=== PATIENT | female | born 1985 | race Caucasian/White ===

== ENCOUNTER → 2019-08-05 15:25 | Outpatient (CLI) | payer OTHER, SELFPAY ==
[2019-08-05 16:55] LABS: Alanine Aminotransferase 15 IU/L (<35); Albumin 4.7 g/dL (3.5-5.0); Albumin Globulin Ratio 1.6 (1.0-2.8); Alkaline Phosphatase 52 U/L (38-126); Aspartate Aminotransferase 18 IU/L (14-36); BUN Creatinine Ratio 12.9 (6-22); Bilirubin Total 0.5 mg/dL (0.2-1.3); Blood Urea Nitrogen 9 mg/dL (7-17); Calcium 9.8 mg/dL (8.4-10.2); Carbon Dioxide 30 mmol/L (22-32); Chloride 99 mmol/L (98-107); Estimated Glomerular Filt Rate > 60.0 mL/min (>60); Globulin 2.9 g/dL (1.7-4.1); Glucose 96 mg/dL (70-100); HEMOLYSIS < 15 (0-50); Lipase 49 U/L (23-300); Potassium 4.5 mmol/L (3.4-5.1); Sodium 138 mmol/L (137-145); Total Protein 7.6 g/dL (6.3-8.2)
[2019-08-05 17:25] LABS: TSH w/ Reflex to FT4 0.69 uIU/mL (0.47-4.68)
== END ==
PROVIDERS: Family Provider Family Medicine; PCP Family Medicine; Referring Provider Family Medicine; Visit Provider Family Medicine
DX: K52.9 Noninfective gastroenteritis and colitis, unspecified (principal)
CPT/HCPCS: 36415; 80053; 83516; 83690; 84443

== ENCOUNTER → 2019-08-13 12:08 | Outpatient (CLI) | payer OTHER, SELFPAY ==
[2019-08-19 22:20] LABS: Calprotectin, Stool < 15.6 mcg/g
== END ==
PROVIDERS: Family Provider Family Medicine; PCP Family Medicine; Referring Provider Family Medicine; Visit Provider Family Medicine
DX: K52.9 Noninfective gastroenteritis and colitis, unspecified (principal)
CPT/HCPCS: 83993

== ENCOUNTER → 2019-09-10 09:06 | Outpatient (CLI) | payer OTHER, SELFPAY | PROVIDERS: Family Provider Family Medicine; PCP Family Medicine; Visit Provider Family Medicine | DX: R19.7 Diarrhea, unspecified (principal) | CPT/HCPCS: 87045; 87177; 87899 ==

== ENCOUNTER → 2020-11-27 11:23 | Outpatient (CLI) | payer OTHER, SELFPAY ==
[2020-11-27 11:59] LABS: Hematocrit 41.6 % (36-46); Hemoglobin 14.3 g/dL (12.0-16.0)
== END ==
PROVIDERS: Family Provider Family Medicine; PCP Family Medicine; Referring Provider Family Medicine; Visit Provider Family Medicine
DX: Z86.2 Personal history of diseases of the blood and blood-forming organs and certain disorders involving the immune mechanism (principal)
CPT/HCPCS: 36415; 85014; 85018

== ENCOUNTER → 2021-03-15 14:38 | Outpatient (CLI) | payer OTHER, MEDICAID, SELFPAY ==
[2021-03-15 16:05] LABS: TSH w/ Reflex to FT4 0.71 uIU/mL (0.47-4.68)
[2021-03-18 16:17] LABS: Estrogen 192 pg/mL (.)
[2021-03-18 19:44] LABS: Follicle Stimulating Hormone 4.43 mIU/mL; Luteinizing Hormone 6.06 mIU/mL
[2021-03-26 11:16] LABS: % Free Progesterone 2.9 % (.); Free Progesterone 2.8 ng/dL (.); Progesterone, Serum 98 ng/dL (.)
== END ==
PROVIDERS: Family Provider Family Medicine; PCP Family Medicine; Referring Provider Family Medicine; Visit Provider Family Medicine
DX: N64.4 Mastodynia (principal)
CPT/HCPCS: 36415; 82672; 83001; 83002; 84144; 84443; 84999

== ENCOUNTER → 2021-11-10 11:41 | Outpatient (CLI) | payer OTHER, MEDICAID, SELFPAY ==
[2021-11-10 12:43] LABS: Add Manual Diff / Slide Review NO; Basophils Absolute Auto 0 /uL (0-100); Basophils Percent Auto 0.2 % (0-2); Eosinophils Absolute Auto 200 /uL (0-450); Eosinophils Percent Auto 1.7 % (2-4); Hematocrit 37.3 % (36-46); Hemoglobin 12.6 g/dL (12.0-16.0); Lymphocytes Absolute Auto 1500 /uL (1100-4500); Mean Corpuscular HGB Conc 33.8 % (30-36); Mean Corpuscular Volume 88.8 fL (80-100); Monocytes Absolute Auto 700 /uL (0-900); Monocytes Percent Auto 7.3 % (3-14); Neutrophils Absolute Auto 7400 /uL (1500-7000); Neutrophils Percent Auto 75.8 % (50-75); Platelet Count 309 X10^3/uL (150-400); Red Cell Distribution Width 13.5 % (11.6-14.8); White Blood Cell Count 9.8 X10^3/uL (4.5-11.0)
[2021-11-10 16:51] LABS: Appearance Urine UA CLEAR; Bilirubin Urine UA NEGATIVE (NEGATIVE); Color Urine UA YELLOW; Glucose Urine UA NEGATIVE (Negative); Ketones Urine UA TRACE (NEGATIVE); Leukocyte Esterase Urine UA TRACE (NEGATIVE); Nitrite Urine UA NEGATIVE (Negative); Occult Blood Urine UA TRACE-INTACT (Negative); Protein Urine UA NEGATIVE (Negative); Urobilinogen Urine UA 0.2 E.U./dL (0.2)
[2021-11-10 17:17] LABS: Bacteria Urine Few (2-10); Culture Indicated Urine Specimen Cultured; RBC Urine 5-10/HPF (0-5/HPF); Squamous Epithelial Cell Urine 5-10 /HPF (0-5/HPF); Transitional Epi Cells Urine 1-5/HPF (0-5/HPF); WBC Urine 5-10/HPF (0-5/HPF)
[2021-11-11 06:43] LABS: RPR Screen Non Reactive (Non Reactive)
[2021-11-11 08:22] LABS: Varicella IgG Antibody 1001 index (Immune >165)
[2021-11-11 16:04] LABS: HIV 1 & 2 Ab/Ag 4th Gen Combo NEGATIVE (NEGATIVE); Hep C Virus Ab w/Reflex Quant NEGATIVE s/c (NEGATIVE); Hepatitis B Surface Antigen NEGATIVE s/c (NEGATIVE); Rubella Antibody IgG 63.4 IU/mL (>15)
== END ==
PROVIDERS: Family Provider Family Medicine; PCP Family Medicine; Referring Provider Family Medicine; Visit Provider Family Medicine
DX: Z34.81 Encounter for supervision of other normal pregnancy, first trimester (principal)
CPT/HCPCS: 36415; 80055; 81003; 81015; 86787; 86803; 86850; 86900; 86901; 87086; 87389

== ENCOUNTER → 2022-01-13 12:15 | Outpatient (CLI) | payer OTHER, MEDICAID, SELFPAY ==
--- NOTE | 2022-01-13 12:17 | DI.US.S_ITS ---
PROCEDURE: US OB >= 14 WEEKS FETUS INDICATIONS: Anatomy Screening OUTSIDE/PRIOR DATING DATA: Last menstrual period (LMP): Unknown. LMP-based estimated date of delivery (SRIDEVI): Not applicable. First dating scan (date and location): No information given. The calculations are made using the clinically generated SRIDEVI of May 26, 2022. TECHNIQUE: Real-time scanning was performed of the fetus, with image documentation and biometric measurements. Endovaginal scanning: Not performed COMPARISON: None. FINDINGS: General: A single living intrauterine gestation is present. Placenta: Placental position is anterior , without previa. Amniotic fluid index: 14.4 cm, normal range is 5-24 cm. Single deepest vertical pocket is 4.6 cm. heart rate: 143 beats per minute. Maternal cervical canal: 4.0 cm long. Normal lower limit is 2.5 cm. biometrics: Biparietal diameter: 5.04 cm, 21 weeks and 2 days Head circumference: 19.17 cm, 21 weeks and 3 days Abdominal circumference: 16.73 cm, 21 weeks and 5 days Femur length: 3.64 cm, 21 weeks and 4 days Clinically estimated gestational age: 21 weeks and 0 days Composite gestational age from present scan: 21 weeks and 4 days Estimated weight and percentile: 438 g which correlates with the 78th percentile for gestational age. Anatomic survey: Neuro: Ventricles are non-dilated at less than 10 mm. Cisterna magna is normal at 3-11 mm. Cerebellum is normal in size and morphology. Nuchal skin fold: Normal at less than 6 mm between 14-21 weeks gestational age. Face: Nose and lips, facial profile were not visualized on this examination secondary to positioning throughout the study. Spine: No evidence for spina bifida. Heart: 4-chambered heart is present, with normal ventricular outflow tracts. Diaphragm: Diaphragm is intact. Stomach: Left-sided stomach is present. Kidneys: No hydronephrosis. Normal is less than 5 mm in 2nd trimester, less than 7 mm in 3rd trimester. Cord: 3-vessel cord has orthotopic insertion. Bladder: Normal in size. Extremities: All 4 extremities identified. IMPRESSION: Single living intrauterine gestation with estimated sonographic gestational age of approximately 21 weeks and 4 days versus 21 weeks and 0 days by clinical dating. Estimated weight of approximately 438 g which correlates with the 78th percentile for gestational age. The facial profile, face and lips were not well visualized secondary to positioning. Otherwise, remainder of the anatomic structures appear unremarkable. Follow-up imaging recommended. We strive to produce accurate, complete, and clear reports of imaging services. To assist us in improving patient care, this report was composed using standard report templates and voice recognition software. Therefore, it may contain abnormal punctuation, insertions and/or omissions. Occasional wrong-word or sound-alike substitutions may occur. Though we review the report and make efforts to correct it, we do recommend that the report be read carefully in proper context to recognize any text inaccuracies. Dictated by: Yung Gomez M.D. on 01/14/2022 at 16:40 Approved by: Yung Gomez M.D. on 01/14/2022 at 16:45
== END ==
PROVIDERS: Family Provider Family Medicine; PCP Family Medicine; Referring Provider Family Medicine; Visit Provider Family Medicine
DX: Z34.92 Encounter for supervision of normal pregnancy, unspecified, second trimester (principal); Z3A.21 21 weeks gestation of pregnancy
CPT/HCPCS: 76811

== ENCOUNTER → 2022-01-28 17:08 | Outpatient (CLI) | payer OTHER, MEDICAID, SELFPAY ==
--- NOTE | 2022-01-28 17:09 | DI.US.S_ITS ---
PROCEDURE: US OB FOLLOW UP INDICATIONS: unable to see structures on previous US OUTSIDE/PRIOR DATING DATA: Last menstrual period (LMP): Unknown. LMP-based estimated date of delivery (SRIDEVI): Not applicable. The calculations are made using the clinical SRIDEVI of May 26, 2022. TECHNIQUE: Real-time scanning was performed of the fetus, with image documentation. Endovaginal scanning: Not performed COMPARISON: None. FINDINGS: A single living intrauterine gestation is present. Presentation: Cephalic. Placenta: Placental position is anterior, without previa. Amniotic fluid index: 13.9 cm, normal range is 5-24 cm. Single deepest vertical pocket is 4.8 cm. heart rate: 152 beats per minute. Maternal cervical canal: 4.1 cm long. Normal lower limit is 2.5 cm. Clinically estimated gestational age: 23 weeks and 1 day Follow-up imaging of facial profile, orbits, nose/lips, and foot appear unremarkable. IMPRESSION: Single living intrauterine gestation with estimated gestational age of approximately 23 weeks and 1 day. Re-evaluation of facial profile, orbits, nose/lips, and foot appear unremarkable. Recommend continued clinical surveillance with follow-up imaging as needed. Dictated by: Yung Gomez M.D. on 01/28/2022 at 17:55 Approved by: Yung Gomez M.D. on 01/28/2022 at 17:58
== END ==
PROVIDERS: Family Provider Family Medicine; PCP Family Medicine; Referring Provider Family Medicine; Visit Provider Family Medicine
DX: Z36.2 Encounter for other antenatal screening follow-up; Z87.59 Personal history of other complications of pregnancy, childbirth and the puerperium; Z3A.23 23 weeks gestation of pregnancy
CPT/HCPCS: 76816

== ENCOUNTER → 2022-03-21 13:28 | Outpatient (CLI) | payer OTHER, MEDICAID, SELFPAY ==
[2022-03-21 15:09] LABS: Add Manual Diff / Slide Review NO; Basophils Absolute Auto 100 /uL (0-100); Basophils Percent Auto 0.5 % (0-2); Eosinophils Absolute Auto 200 /uL (0-450); Eosinophils Percent Auto 1.4 % (2-4); Hematocrit 32.3 % (36-46); Hemoglobin 11.3 g/dL (12.0-16.0); Lymphocytes Absolute Auto 1500 /uL (1100-4500); Lymphocytes Percent Auto 11.8 % (25-40); Mean Corpuscular Hemoglobin 30.4 PG (26-34); Mean Corpuscular Volume 86.9 fL (80-100); Monocytes Absolute Auto 800 /uL (0-900); Monocytes Percent Auto 6.5 % (3-14); Neutrophils Absolute Auto 10300 /uL (1500-7000); Neutrophils Percent Auto 79.8 % (50-75); Platelet Count 306 X10^3/uL (150-400); Red Blood Cell Count 3.72 X10^6/uL (4.0-5.2); Red Cell Distribution Width 13.5 % (11.6-14.8); White Blood Cell Count 12.9 X10^3/uL (4.5-11.0)
[2022-03-21 15:22] LABS: GTT (PREG) 1 Hour PP 50gm Dose 113 mg/dL (76-139)
== END ==
PROVIDERS: Family Provider Family Medicine; PCP Family Medicine; Referring Provider Family Medicine; Visit Provider Family Medicine
DX: Z34.93 Encounter for supervision of normal pregnancy, unspecified, third trimester (principal); Z3A.31 31 weeks gestation of pregnancy
CPT/HCPCS: 36415; 82950; 85025

== ENCOUNTER → 2022-04-12 15:59 | Outpatient (CLI) | payer OTHER, MEDICAID, SELFPAY ==
--- NOTE | 2022-04-12 16:00 | DI.US.S_ITS ---
PROCEDURE: US OB LIMITED INDICATIONS: growth OUTSIDE/PRIOR DATING DATA: Last menstrual period (LMP): Unknown. LMP-based estimated date of delivery (SRIDEVI): 05/26/22. First dating scan (date and location): Not available. Estimated date of delivery (SRIDEVI) from first dating scan: Not applicable. The calculations are made using the working SRIDEVI of 05/26/22. TECHNIQUE: Real-time scanning was performed of the fetus, with image documentation. Endovaginal scanning: Not performed COMPARISON: [facility], [facility] [facility], 10/06/2017, 12:06. FINDINGS: A single living intrauterine gestation is present. Presentation: Cephalic. Placenta: Placental position is anterior, without previa. Amniotic fluid index: 13 cm, normal range is 5-24 cm. Single deepest vertical pocket is 5.6 cm. heart rate: 128 beats per minute. Maternal cervical canal: Closed and 3.8 cm long. Normal lower limit is 2.5 cm. Biometric measurements are as follows: Biparietal diameter 8.5 cm, 34 weeks, three days Head circumference 30.9 cm, 34 weeks, four days Abdominal circumference 29.9 cm, 33 weeks, six days Femur length 6.4 cm, 33 weeks, 0 days Clinically estimated gestational age: 33 weeks, five days Estimated gestational age from initial scan: 34 weeks, 0 days. Estimated weight 2263 g, 43rd percentile IMPRESSION: 1. Single living intrauterine with appropriate and symmetric growth compared to the prior study. 2. Estimated weight is at the 43rd percentile . 3. Closed cervix and normal amniotic fluid volume Dictated by: Madalyn Yeung M.D. on 04/12/2022 at 18:10. Approved by: Madalyn Yeung M.D. on 04/12/2022 at 18:13
== END ==
PROVIDERS: Family Provider Family Medicine; PCP Family Medicine; Referring Provider Family Medicine; Visit Provider Family Medicine
DX: Z34.83 Encounter for supervision of other normal pregnancy, third trimester (principal); Z3A.33 33 weeks gestation of pregnancy
CPT/HCPCS: 76815

== ENCOUNTER → 2022-05-02 11:28 | Outpatient (CLI) | payer OTHER, MEDICAID, SELFPAY ==
[2022-05-03 11:06] LABS: Strep Grp B PCR NEG for Grp B Strep
== END ==
PROVIDERS: Family Provider Family Medicine; PCP Family Medicine; Visit Provider Family Medicine
DX: Z36.85 Encounter for antenatal screening for Streptococcus B (principal)
CPT/HCPCS: 87653

== ENCOUNTER 2022-05-23 11:11 | Inpatient (IN) | payer OTHER, MEDICAID, SELFPAY ==
--- NOTE | 2022-05-23 11:37 | P.HPOB_ITS ---
OB HPI Date/Time Date of admission: 05/23/22 Date Patient Seen: 05/23/22 History of Present Condition Chief complaint: INPT SRIDEVI Calculator Estimated Delivery Date Method Current WG Current Estimate 05/26/22 Ultrasound #1 39w 4d Other Estimates 06/21/22 LMP (Uncertain) 35w 6d Estimated Gestational Age (weeks): 39w4d : 4 Para: 1 Narrative: Pt is a 36yo at 39w4d who presents for scheduled repeat . complicated by anxiety/depression, controlled on Sertraline and Hydroxyzine. The pt denies any vaginal bleeding, contractions, LOF. She is feeling her baby move regularly. care: good care, initiated at week # (11) and pounds weight gain (63) Dating criteria OB: based on 1st trimester US only Ultrasounds: normal 1st trimester US and normal mid trimester US Obstetrical complications: none Medical complications OB: psychiatric Indications Operative indications ( section): previous uterine surgery Preadmission Labs Last OB Lab Results: Blood Type O Positive 11/10/21 11:44 Antibody Screen Negative 11/10/21 11:44 Hematocrit 32.3 % (36-46) L 03/21/22 14:50 Hemoglobin 11.3 g/dL (12.0-16.0) L 03/21/22 14:50 Hepatitis B Surface Antigen Negative s/c (NEGATIVE) 11/10/21 11 :44 Hepatitis C Antibody Negative s/c (NEGATIVE) 11/10/21 11:44 Rubella Antibody 63.4 IU/mL (>15) 11/10/21 11:44 Varicella-Zoster IgG Antibody 1001 index (Immune >165) 11/10/21 11:44 Glucose 1 Hour 113 mg/dL (76-139) 03/21/22 14:50 Group B Streptococcus (PCR) Neg for grp b strep 05/02/22 11:28 -: Urine: negative Genetic Screens: Cell-free DNA: Normal External Labs -: Urine: negative Prior (ies) Past Pregnancies Del. Date GA/Weeks Labor Lgth Wt Sex Route Outcome Anesthesia Place Delv Breastfeed Preg Comp Name 03/18/15 5 spontaneous 03/16/16 41 7 lb Female still spinal IH Se[place] intrauterine Clarisa 10/09/17 39 7 lb Male live - full term spinal I H 2 years none Miguel Evaluation Evaluation Baseline heart rate: 130 Variability: Moderate (11-25) monitor accelerations: Present Monitor Decelerations: Absent Category of Tracing: Reactive PFSH Medical History (Updated 11/12/21 @ 08:20 by Jocy Joiner MD) Anxiety Chicken pox Depression History of demise, not currently (10/21/16) Surgical History (Updated 11/09/21 @ 22:28 by Stephanie Landrum) Status post delivery (03/16/16) [place] teeth extracted Family History (Updated 11/09/21 @ 22:29 by Stephanie Landrum) Father Age: 65 Hypertension Scoliosis Grandfather High cholesterol Grandfather Age: 97 Hypertension Grandmother Hypertension Diabetes mellitus Social History marital status: unmarried,living together details: In the process of divorce currently as of 11/03/21 number of children: 1 household members: significant other, children and other lives independently: Yes housing: house pets and animals: Yes (2 cats and one dog, aware of toxoplasmosis risks. ) education level: college occupational status: previously employed current occupational exposures/hazards: No special kris needs: No seatbelt use: always water heater temp set < 120 deg: Yes working smoke detector in home: Yes fire extinguisher in home: Yes carbon monox detector in home: Yes firearms in home: No do you feel safe at home: Yes Smoking Status: Never smoker second hand exposure: Yes (s/o smokes outside.) alcohol intake: never substance use type: does not use during the past year weight has: remained stable well-balanced diet: daily or most days daily servings fruits/ve or more times/day caffeine: No Type(s) of exercise: walking Meds Home Medications and Allergies Home Medications Medication Instructions Recorded Confirmed Type prenat.vits,joshua,afc-uvfy-oeymr 1 tab PO DAILY 11/03/21 05/02/22 History sertraline 25 mg tablet 25 mg PO DAILY #30 tabs 02/23/22 05/02/22 Rx hydroxyzine HCl 25 mg tablet 25 mg PO TID PRN anxiety #30 tabs 05/12/22 Rx Allergies Allergy/AdvReac Type Severity Reaction Status Date / Time No Known Drug Allergies Allergy Verified 05/23/22 09:33 OB Exam Narrative Exam Narrative: Gen: NAD, sitting comfortably in bed, appears well CV: RRR, no murmurs Resp: clear to auscultation bilaterally Abd: soft, nontender, gravid Ext: no edema Assessment and Plan Assessment and Plan Assessment and Plan narrative: 36yo at 39w4d here for scheduled repeat . GBS negative, Rh positive. complicated by anxiety/depression stable on Sertraline and Hydroxyzine. Reviewed risks and benefits of repeat . Risks including but not limited to bleeding/hemorrhage, infection, injury to other organs such as the bowel/bladder, injury to the fetus. The pt is agreeable to blood transfusion if medically necessary. The pt agreed to surgery, and the consent was signed and placed in her chart. She will receive 2g of Ancef prior to surgery. SCDs to be placed prior to surgery.
--- NOTE | 2022-05-23 12:05 | PM.PREOP ---
Pre-operative Note COVID-19 COVID-19 status: Negative Result date/Date tested (Pos, Neg/Pending): 05/23/22 Interval Note History & Physical reviewed/Exam performed by Physician: Yes Changes to H&P: No
[2022-05-23 12:38] LABS: Add Manual Diff / Slide Review NO; Basophils Absolute Auto 0 /uL (0-100); Basophils Percent Auto 0.3 % (0-2); Eosinophils Absolute Auto 100 /uL (0-450); Eosinophils Percent Auto 1.1 % (2-4); Hematocrit 36.6 % (36-46); Hemoglobin 12.5 g/dL (12.0-16.0); Lymphocytes Absolute Auto 2000 /uL (1100-4500); Lymphocytes Percent Auto 16.1 % (25-40); Mean Corpuscular HGB Conc 34.2 % (30-36); Mean Corpuscular Hemoglobin 29.8 PG (26-34); Mean Corpuscular Volume 87.4 fL (80-100); Monocytes Absolute Auto 1100 /uL (0-900); Monocytes Percent Auto 9.3 % (3-14); Neutrophils Absolute Auto 9000 /uL (1500-7000); Neutrophils Percent Auto 73.2 % (50-75); Platelet Count 297 X10^3/uL (150-400); Red Blood Cell Count 4.19 X10^6/uL (4.0-5.2); Red Cell Distribution Width 14.2 % (11.6-14.8); White Blood Cell Count 12.3 X10^3/uL (4.5-11.0)
[2022-05-23 12:54] LABS: COVID19 -Nasal RAPID Negative (Negative)
[2022-05-23] MEDS: LACTATED RINGERS 1,000 ML 42 ML IV ×2 (13:32→14:30)
[2022-05-23] MEDS: LACTATED RINGERS 1,000 ML 100 ML IV (13:32)
[2022-05-23] MEDS: CEFAZOLIN 2 GM/100 ML PREMIX 100 ML IV (13:53)
--- NOTE | 2022-05-23 14:10 | SUR.OPER ---
Supine on Padded OR bed, head on pillow, safety belt at thigh, arms secured on padded arm boards at <90 degrees abduction. Bump under right buttock. Legs uncrossed with gel pad to heels, blanket to lower legs.
--- NOTE | 2022-05-23 14:15 | SUR.OPER ---
cord blood and placenta to OB RN
[2022-05-23 14:58] VITALS: BP 92/51; PULSE 70; RESP 18; TEMP 36.2; O2SAT 94
[2022-05-23 15:04] VITALS: BP 103/61; PULSE 68; RESP 31; O2SAT 97
[2022-05-23 15:08] VITALS: BP 106/64; PULSE 67; RESP 16; TEMP 36.2
[2022-05-23 15:18] VITALS: BP 104/66; PULSE 64; RESP 15; TEMP 36.1; O2SAT 96
--- NOTE | 2022-05-23 15:30 | P.OP_ITS ---
Operative Date/Time/Diagnoses Date of procedure: 05/23/22 Time of procedure: 14:00 Pre-op diagnosis: 39w4d gestation GBS negative Rh positive Hx of prior Post-op diagnosis: same Procedure & Clinicians Procedure: Repeat Same procedure as scheduled: Yes Indications: Hx of prior Surgeon: Jocy Joiner Occupational Health And Safety Officer: Alicia Dwyer Anesthesia Type: Spinal Operative Notes Findings: Normal uterus, ovaries, and tubes Closure Type: primary Specimen(s): cord blood Intraoperative meds administered: Duramorph, Ketorolac and Pitocin Applied: Catheter Estimated Blood Loss (mL): 700 Blood products transfused: none Procedure in detail: OPERATIVE COURSE: The patient was taken to the operating room where spinal anesthesia was placed. She was then prepared and draped in the normal sterile fashion in the dorsal supine position with a leftward tilt. Anesthesia was tested and found to be adequate. A Pfannensteil skin incision was then made with the scalpel and carried through to the underlying layer of fascia with the scalpel. The fascia was incised in the midline and the incision extended laterally with the Mullins scissors. The superior aspect of the fascial incision was then grasped with Mark clamps, elevated with the help of the surgical sales representative, and the underlying rectus muscles dissected off bluntly and sharply where needed. Attention was then turned to the inferior aspect of the incision which, in a similar fashion, was grasped, tented up with Mark clamps, and the rectus muscle dissected off bluntly and sharply with Mullins scissors. The rectus muscles were then in the midline, and the peritoneum was identified and entered bluntly. The peritoneal incision was then extended with good visualization of the bladder. Retraction was provided by the surgical sales representative. The bladder blade was then inserted and the vesicouterine peritoneum identified, grasped with pick-ups and entered sharply with the Metzenbaum scissors. The incision was then extended laterally and the bladder flap created digitally. The bladder blade was then reinserted and the lower uterine segment incised in a transverse fashion with the scalpel, with the surgical sales representative providing suction. The uterine incision was then extended superolaterally by pulling superolaterally on both sides. Membranes were ruptured and fluid was clear. The bladder blade was removed the 's head was flexed out of JEWEL position and delivered atraumatically, with fundal pressure by the surgical sales representative. The nose and mouth were suctioned with bulb suction and the cord was clamped and cut. The was handed off to the waiting nursing staff. Cord blood was collected for Rh status. The placenta was then delivered by manual extraction due to cord avulsion. The uterus was then cleared of all clots and debris. The uterine incision was repaired with O Vicryl in a running, locked fashion. A second layer of the same suture was used for imbrication. Two gmonno-ya-viyem sutures with O Vicryl were used to obtain excellent hemostasis. The gutters were cleared of all clots. Hysterotomy was investigated and found to be hemostatic. The peritoneum was closed with 3-O Vicryl. The fascia was reapproximated with O-Vicryl in a running fashion. The subcutaneous tissue was reapproximated with 3-O Vicryl. The skin was closed with 4-O Vicryl. The surgical sales representative helped with retraction during closures. SPONGE AND NEEDLE COUNTS: Correct x3. DRESSING: Aquacel ANTICOAGULATION: SCDs applied prior to Surgery Preop antibiotics given (see MAR). The patient was taken to recovery room having tolerated procedure well. [place] Baby 1: Infant Gender: Male Presentation: vertex Position: Left Occiput Anterior Placental Delivery Description: Manual Removal Cord Vessel Description: 3 Vessels score (1 min): 7 score (5 min): 8 weight: 8 lb 6.817 oz Post-operative Condition: stable Disposition: PACU Aftercare: routine postop
--- NOTE | 2022-05-23 15:36 | SUR.PHASEI ---
OB RN at bedside Mother, baby together assessed by both PACU and OB RN . Visualizaion and verified fundus check and assessed for bleeding.
[2022-05-23 15:48] VITALS: BP 115/60
[2022-05-23] MEDS: SERTRALINE 50 MG TABLET 25 MG PO (21:48)
[2022-05-23] MEDS: LANOLIN OINT 7 GM 1 APPLIC TOP (22:18)
[2022-05-23] MEDS: KETOROLAC 30 MG/ML VIAL IV (22:20)
[2022-05-24] MEDS: KETOROLAC 30 MG/ML VIAL IV ×2 (04:51→11:27)
[2022-05-24] MEDS: OXYCODONE IR 5 MG TABLET PO ×4 (04:57→20:23)
[2022-05-24 06:50] LABS: Add Manual Diff / Slide Review NO; Basophils Absolute Auto 0 /uL (0-100); Basophils Percent Auto 0.2 % (0-2); Eosinophils Absolute Auto 200 /uL (0-450); Eosinophils Percent Auto 1.3 % (2-4); Hematocrit 30.7 % (36-46); Hemoglobin 10.6 g/dL (12.0-16.0); Lymphocytes Absolute Auto 1200 /uL (1100-4500); Lymphocytes Percent Auto 9.8 % (25-40); Mean Corpuscular HGB Conc 34.6 % (30-36); Mean Corpuscular Volume 86.6 fL (80-100); Monocytes Absolute Auto 1100 /uL (0-900); Neutrophils Absolute Auto 9800 /uL (1500-7000); Neutrophils Percent Auto 79.7 % (50-75); Platelet Count 232 X10^3/uL (150-400); Red Blood Cell Count 3.54 X10^6/uL (4.0-5.2); Red Cell Distribution Width 14.4 % (11.6-14.8); White Blood Cell Count 12.2 X10^3/uL (4.5-11.0)
--- NOTE | 2022-05-24 08:23 | PM.OBPN.1 ---
Subjective - OB Subjective Patient comments: no complaints and pain well controlled [place] baby status: doing well and nursing well feeding status: exclusively breast feeding Narrative: Patient reports that she is doing well. Her lochia is decreasing appropriately. Her fuchs remains in place. She has not yet passed flatus. Exam Vital Signs (past 8 hours): Oxygen Delivery Method Room Air Resp Auscultation: clear to auscultation bilaterally Cardio Rate: regular rate Rhythm: regular rhythm Heart Sounds: S1 normal, S2 normal and no murmurs GI Inspection: non-distended and incision (dressing c/d/i) Palpation: soft, No guarding and tender (appropriately tender) Auscultation: normal bowel sounds Other: fundus firm and below the umbilicus Extrem Right upper extremity: no edema Objective Labs Result Diagrams: 05/24/22 06:28 Labs: Laboratory Results - last 24 hr 05/23/22 05/23/22 05/23/22 11:43 12:30 12:30 WBC 12.3 H RBC 4.19 Hgb 12.5 Hct 36.6 MCV 87.4 MCH 29.8 MCHC 34.2 RDW 14.2 Plt Count 297 Neut % (Auto) 73.2 Lymph % (Auto) 16.1 L [place] % (Auto) 9.3 Eos % (Auto) 1.1 L Baso % (Auto) 0.3 Neut # (Auto) 9000 H Lymph # (Auto) 2000 [place] # (Auto) 1100 H Eos # (Auto) 100 Baso # (Auto) 0 SARS-CoV-2 (PCR) Negative Blood Type O Positive Antibody Screen Negative 05/24/22 06:28 WBC 12.2 H RBC 3.54 L Hgb 10.6 L Hct 30.7 L MCV 86.6 MCH 30.0 MCHC 34.6 RDW 14.4 Plt Count 232 Neut % (Auto) 79.7 H Lymph % (Auto) 9.8 L [place] % (Auto) 9.0 Eos % (Auto) 1.3 L Baso % (Auto) 0.2 Neut # (Auto) 9800 H Lymph # (Auto) 1200 [place] # (Auto) 1100 H Eos # (Auto) 200 Baso # (Auto) 0 SARS-CoV-2 (PCR) Blood Type Antibody Screen Assessment & Plan Plan Comments: Pt is a 36yo POD#1 s/p repeat without complications. Pt doing well. - Normal care - Encourage ambulation, fuchs to be removed this morning - support Time Spent With Patient Time: Total time spent is greater than 50% in coordination of care (as documented) at patient's floor/unit and/or counseling patient: Time with patient: less than 15 minutes
[2022-05-24] MEDS: DOCUSATE 100 MG CAPSULE 200 MG PO (08:33)
[2022-05-24] MEDS: ACETAMINOPHEN 325 MG TABLET 650 MG PO ×3 (08:34→20:22)
[2022-05-24] MEDS: IBUPROFEN 600 MG TABLET PO (20:23)
[2022-05-24] MEDS: SERTRALINE 50 MG TABLET 25 MG PO (20:24)
[2022-05-25] MEDS: OXYCODONE IR 5 MG TABLET PO ×2 (00:23→04:22)
[2022-05-25] MEDS: IBUPROFEN 600 MG TABLET PO (02:30)
[2022-05-25] MEDS: ACETAMINOPHEN 325 MG TABLET 650 MG PO (02:30)
[2022-05-25 09:40] VITALS: BP 120/72; PULSE 73; RESP 14; TEMP 36.3
--- NOTE | 2022-05-25 09:41 | PM.OBDS.1 ---
Discharge Providers Provider Date of admission: 05/23/22 11:11 Discharge Date: 05/25/22 Primary care physician: Jocy Joiner MD Consults: 05/23/22 15:38 Consult to Residential Mortgage Underwriter Routine Comment: Discharge provider: Jocy Joiner MD Summary Hospital Course Date Patient Seen: 05/25/22 Diagnoses: 39w4d gestation GBS negative Rh positive Hx of prior Hospital Course: The patient presented for scheduled repeat . The patient underwent surgery without complications and delivered a viable baby boy. , there were no complications. At the time of discharge she was voiding, ambulating, passing flatus without difficulty. Her lochia was decreasing appropriately. Her pain was well controlled. She is breast-feeding with good latch. She will follow-up in 1 week for incision check. Peripartum Data Delivery Method: Section Procedures: Repeat complications: none 1: Gender: Male Disposition of : home Discharge Diagnosis (1) Anxiety: Status: Acute (2) Depression: Status: Acute (3) S/P : Status: Acute Time Spent with Patient Time attestation: Total time spent providing and/or coordinating discharge services: Objective Labs Result Diagrams: 05/24/22 06:28 Exam Vital Signs (past 8 hours): - 05/25/22 09:40 Temperature 97.3 F L Pulse Rate 73 Respiratory Rate 14 Blood Pressure 120/72 Oxygen Delivery Method Room Air Resp Auscultation: clear to auscultation bilaterally Cardio Rate: regular rate Rhythm: regular rhythm Heart Sounds: S1 normal, S2 normal and no murmurs GI Inspection: non-distended and incision (dressing c/d/i) Palpation: soft, No guarding and tender (appropriately tender) Auscultation: normal bowel sounds Other: fundus firm and below the umbilicus Extrem Right upper extremity: no edema Discharge Plan Discharge Plan Patient Disposition: Home Discharge orders & Medications Prescriptions: New acetaminophen 325 mg Tablet 650 mg PO Q6H PRN (Reason: Fever/Mild Pain (1-3)) Qty: 30 0RF docusate sodium 100 mg Capsule 200 mg PO DAILY Qty: 30 0RF ibuprofen 600 mg Tablet 600 mg PO Q6H PRN (Reason: Fever/Mild Pain (1-3)) Qty: 30 0RF oxycodone 5 mg Tablet 5 mg PO Q4H PRN (Reason: Pain, Moderate (4-6)) Qty: 30 0RF Continued sertraline 25 mg tablet 25 mg PO DAILY Qty: 30 2RF hydroxyzine HCl 25 mg tablet 25 mg PO TID PRN (Reason: anxiety) Qty: 30 1RF prenat.vits,joshua,[id number] Tablet 1 tab PO DAILY Follow up/Referrals: Jocy Joiner MD [Primary Care Provider] - 05/31/22 12:00 pm Diet/Activity/Treatments Diet: Diet as Tolerated and Regular Skin/Wound/Dressing Care Report to your healthcare provider any signs of infection, such as:: chills, fever, increased pain and unusual drainage Visit Report/Discharge Packet Instructions: DI for Stand Alone Forms: Discharge: Care Visit Report Forms: Patient Portal/API, Stroke Signs & Symptoms Discharge Data Primary Care Provider: Jocy Joiner Discharges patient from system. Discharge Date/Time: 05/25/22 10:56
== END 2022-05-25 10:56 | disposition home or self-care (01) | DRG 540 ==
PROVIDERS: Admitting Provider Family Medicine; Family Provider Family Medicine; PCP Family Medicine; Referring Provider Family Medicine; Visit Provider Family Medicine
PROC: 10D00Z1 Extraction of Products of Conception, Low, Open Approach (ICD-10-PCS; CPT 59514; principal; 2022-05-23 13:30)
DX: O34.211 Maternal care for low transverse scar from previous cesarean delivery (principal); Z3A.39 39 weeks gestation of pregnancy; Z37.0 Single live birth; Z67.40 Type O blood, Rh positive; O99.344 Other mental disorders complicating childbirth; F41.9 Anxiety disorder, unspecified; F32.A Depression, unspecified; Z20.822 Contact with and (suspected) exposure to COVID-19
CPT/HCPCS: 36415; 59050; 59514; 85025; 86850; 86900; 86901; 87635; C9803; J0690; J1885; J2274; J2405; J2590; J3010

== ENCOUNTER → 2022-06-13 17:01 | Outpatient (CLI) | payer OTHER, MEDICAID, SELFPAY ==
[2022-06-13 18:31] LABS: Influenza A - CEPHEID Flu A POSITIVE (NEGATIVE); Influenza B - CEPHEID Flu B NEGATIVE (NEGATIVE); Respiratory Syncytial Virus Negative (Negative)
[2022-06-13 18:56] LABS: COVID-19 CEPHEID 4-PLEX PCR Negative (Negative)
== END ==
PROVIDERS: Family Provider Family Medicine; PCP Family Medicine; Visit Provider Nurse Practitioner Family
DX: R05.1 Acute cough (principal); Z20.822 Contact with and (suspected) exposure to COVID-19
CPT/HCPCS: 0241U

== ENCOUNTER → 2024-09-02 11:42 | Outpatient (CLI) | payer OTHER, SELFPAY ==
[2024-09-04 15:12] LABS: QuantiFERON Mitogen Value >10.00 IU/mL (.); QuantiFERON Nil Value 0.01 IU/mL (.); QuantiFERON TB Gold Plus Negative (Negative); QuantiFERON TB1 Ag Value 0.06 IU/mL (.); QuantiFERON TB2 Ag Value 0.02 IU/mL (.)
== END ==
PROVIDERS: Family Provider Family Medicine; PCP Family Medicine; Referring Provider Family Medicine; Visit Provider Family Medicine
DX: Z02.1 Encounter for pre-employment examination (principal); Z11.1 Encounter for screening for respiratory tuberculosis
CPT/HCPCS: 36415; 86480

== ENCOUNTER → 2024-09-02 14:21 | Outpatient (CLI) | payer OTHER, SELFPAY ==
[2024-09-02 16:33] LABS: Rubella Antibody IgG 63.4 IU/mL (>15)
[2024-09-03 09:40] LABS: Rubeola Measles IgG > 300.0 AU/mL (Immune >16.4)
[2024-09-04 05:36] LABS: Hepatitis B Surf Ab Qualitativ Reactive (.)
== END ==
PROVIDERS: Internal Medicine; Family Provider Family Medicine; PCP Family Medicine; Referring Provider Family Medicine; Visit Provider Family Medicine
DX: Z02.1 Encounter for pre-employment examination (principal); Z11.1 Encounter for screening for respiratory tuberculosis
CPT/HCPCS: 36415; 86480; 86706; 86735; 86762; 86765